=== PATIENT | female | born 1945 | race Hispanic/Latino ===

== ENCOUNTER 2017-10-17 07:27 | Outpatient (CLI) | payer MEDICARE, MEDICAID ==
--- NOTE | 2017-10-17 10:25 | MRI ---
BRAIN MRI WITH AND WITHOUT CONTRAST: INDICATION: Mild cognitive impairment. FINDINGS: The ventricular system is normal in size. The septum pellucidum and third ventricle are in the midli ne. There is no acute territorial infarction, intracranial mass effect, or midline shift. No intrac ranial hemorrhagic susceptibility. There is no pathologic intraaxial enhancement. The imaged skull flow voids are patent. Mild right mastoid fluid is seen. IMPRESSION: No acute intracranial abnormalities. POS: [facility]
[2017-10-17] MEDS ORDERED: Gadobenate Dimeglumine 529 MG/1 ML (20ML VIAL) ONE (16:42)
== END 2017-10-17 07:28 | disposition home or self-care (01) ==
LOC: MRI 07:27
PROVIDERS: ATTEND Psychiatry & Neurology Neurology
DX: G31.84 Mild cognitive impairment of uncertain or unknown etiology (principal)
CPT/HCPCS: 70553; A9579

== ENCOUNTER 2017-10-28 08:00 | Outpatient (CLI) | payer MEDICARE, MEDICAID | END 2017-10-28 08:01 | disposition home or self-care (01) | LOC: BICULT 08:00 | PROVIDERS: ATTEND Specialist | DX: R10.9 Unspecified abdominal pain (principal) | CPT/HCPCS: 76700; 76856 ==

== ENCOUNTER 2017-11-17 07:57 | Outpatient (CLI) | payer MEDICARE, MEDICAID ==
--- NOTE | 2017-11-17 11:12 | NM ---
HEPATOBILIARY SCAN: Date: 11/17/17 HISTORY: Acute cholecystitis. Right upper quadrant pain. RADIOPHARMACEUTICAL: 5 mCi technetium-99m mebrofenin injected intravenously. FINDINGS: There is good tracer extraction by the liver with prompt excretion into the biliary tract and small b owel loops, and normal filing of the gallbladder. The calculated gallbladder ejection fraction follow ing an oral fatty meal measures 78%. IMPRESSION: Normal exam. POS: BHAVESH
== END 2017-11-17 07:58 | disposition home or self-care (01) ==
LOC: NM 07:57
PROVIDERS: ATTEND Specialist
DX: K81.9 Cholecystitis, unspecified (principal)
CPT/HCPCS: 78227; A9537

== ENCOUNTER 2018-08-06 14:22 | Outpatient (CLI) | payer MEDICARE, MEDICAID ==
--- NOTE | 2018-08-06 16:08 | BD ---
Exam: DEXA Bone Density 08/06/18 HISTORY: 72-year-old female with history of osteoporosis. COMPARISON: Exam from [facility] 06/06/16. Lumbar Spine: BMD (g/cm2) L1 0.715 T-Score: -2.5 L2 0.782 T-Score: -2.2 L3 0.783 T-Score: -2.7 L4 0.775 T-Score: -2.6 L1-L4 0.766 T-Score: -2.6 Evidence for osteoporosis with high risk for fracture. This -2.6 T-Score for a total compares to a -3 .3 T-Score for 06/06/16 study. Left Femoral Neck: 0.600 T-Score: -2.2 Total Femur: 0.825 T-Score: -1.0 Evidence for osteopenia. Femoral neck score of -2.2 on today's study compares to a -2.4 on the prior study and the -1.0 total corresponds to a -2.3 on the prior study. FRAX score not reported because some T-scores are at or bel ow -2.5, treated for osteoporosis. POS: ELISEO
== END 2018-08-06 14:23 | disposition home or self-care (01) ==
LOC: BICMAMMO 14:22
PROVIDERS: ATTEND Specialist
DX: Z12.31 Encounter for screening mammogram for malignant neoplasm of breast (principal); M81.0 Age-related osteoporosis without current pathological fracture; M85.88 Other specified disorders of bone density and structure, other site
CPT/HCPCS: 77063; 77067; 77080

== ENCOUNTER 2018-10-23 13:14 | Outpatient (CLI) | payer MEDICARE, MEDICAID ==
--- NOTE | 2018-10-23 13:50 | RAD ---
TWO TO THREE VIEW LUMBAR SPINE SERIES: INDICATION: Low back pain, recent onset. FINDINGS: There is mild left convexity curvature centered at the mid lumbar spine. Multilevel mild to moderate degenerative changes present, greatest inferiorly. No significant subluxation or compression deform ity. There are vascular calcifications overlying the pelvis. IMPRESSION: Mild to moderate degenerative change and levocurvature of the lumbar spine without acute osseous abno rmality visualized. POS: [facility]O
== END 2018-10-23 13:15 | disposition home or self-care (01) ==
LOC: BICRAD 13:14
PROVIDERS: ATTEND Specialist
DX: M54.5 Low back pain (principal); M47.816 Spondylosis without myelopathy or radiculopathy, lumbar region
CPT/HCPCS: 72100

== ENCOUNTER 2019-07-01 08:32 | Outpatient (CLI) | payer MEDICARE, MEDICAID ==
--- NOTE | 2019-07-01 11:24 | CT ---
CT ABDOMEN AND PELVIS WITHOUT CONTRAST: HISTORY: Abdominal pain. Left upper quadrant pain. FINDINGS: Absence of oral and IV contrast reduces the sensitivity of the exam, particularly for evaluation of s olid organs involved. The lung bases are clear. No free air or free fluid is seen in the abdomen or pelvis. No calcified ga llstones are seen. No calculi are seen in the kidneys, ureters or the urinary bladder. No hydroureteronephrosis is noted on either side. Uterus and ovaries are present. There is no evidence of aneurysmal dilatation of the abdominal aorta. There are degenerative changes in the spine. A normal appearing appendix is present. IMPRESSION: No CT evidence of urinary tract calculi/obstruction or appendicitis. POS: [facility]
--- NOTE | 2019-07-01 11:31 | RAD ---
LUMBAR SPINE 6 VIEWS: Date: 07/01/19 INDICATION: Low back pain. FINDINGS: Lumbar vertebra maintain height and alignment. Mild disc narrowing at all levels. Mild degenerative s purring and mild facet hypertrophy. There is mild anterolisthesis at L5-S1, which does not appear to change with flexion or extension. Alignment is otherwise preserved. IMPRESSION: There are mild degenerative changes of the lumbar spine. Mild anterior spondylolisthesis at L5-S1 is noted. POS: [facility]
== END 2019-07-01 08:33 | disposition home or self-care (01) ==
LOC: BICCT 08:32
PROVIDERS: ATTEND Specialist
DX: R10.9 Unspecified abdominal pain (principal); M47.816 Spondylosis without myelopathy or radiculopathy, lumbar region; M43.17 Spondylolisthesis, lumbosacral region
CPT/HCPCS: 72100; 74176

== ENCOUNTER 2021-02-27 14:54 | Outpatient (CLI) | payer MEDICARE, MEDICAID ==
[~2021-02-27 14:54] MED LIST: Magnevist 469MG/ML 20 ML VIAL ONE
== END 2021-02-27 14:55 | disposition home or self-care (01) ==
LOC: BICMRI 14:54
PROVIDERS: ATTEND Specialist
DX: I63.9 Cerebral infarction, unspecified (principal)
CPT/HCPCS: 70553; 82565; A9579

== ENCOUNTER 2021-03-02 11:18 | Outpatient (CLI) | payer MEDICARE, MEDICAID | END 2021-03-02 11:19 | disposition home or self-care (01) | LOC: BICCT 11:18 | PROVIDERS: ATTEND Specialist | DX: R10.9 Unspecified abdominal pain (principal) | CPT/HCPCS: 74176 ==

== ENCOUNTER 2021-03-02 11:42 | Outpatient (CLI) | payer MEDICARE, MEDICAID | END 2021-03-02 11:43 | disposition home or self-care (01) | LOC: BICRAD 11:42 | PROVIDERS: ATTEND Specialist | DX: M54.2 Cervicalgia (principal) | CPT/HCPCS: 72040 ==

== ENCOUNTER 2022-05-20 15:13 | Outpatient (CLI) | payer MEDICARE, MEDICAID | END 2022-05-20 15:14 | disposition home or self-care (01) | LOC: BICMAMMO 15:13 | PROVIDERS: ATTEND Specialist | DX: Z12.31 Encounter for screening mammogram for malignant neoplasm of breast (principal); M85.80 Other specified disorders of bone density and structure, unspecified site; Z78.0 Asymptomatic menopausal state | CPT/HCPCS: 77063; 77067; 77080 ==

== ENCOUNTER 2023-04-10 15:39 | Outpatient (CLI) | payer MEDICARE, MEDICAID | END 2023-04-10 15:40 | disposition home or self-care (01) | LOC: RAD 15:39 | PROVIDERS: ATTEND Specialist | DX: M25.511 Pain in right shoulder (principal) ==